=== PATIENT | male | born 1950 | race Two or more races ===

== ENCOUNTER 2024-06-25 11:33 | Emergency (ER) | payer OTHER ==
[2024-06-25 11:50] VITALS: RESP 18; TEMP 98; BMI 28.6
[2024-06-25 12:47] LABS: BASO % 0.5 % (0-2.0); EOS % 1.5 % (0-4.5); HEMATOCRIT 31.5 % (35.4-49); HEMOGLOBIN 10.1 GM/dL (11.7-16.9); LYMPH % 23.6 % (8-40); MCH 25.7 pg (25.7-33.7); MEAN CELL VOLUME 80.2 fl (80-96); MEAN PLT VOLUME 7.5 fl (7.5-11.1); MONO % 14.9 % (3.8-10.2); NEUT % 59.5 % (42.8-82.8); PLATELET COUNT 264 10^3/uL (134-434); RBC 3.93 M/mm3 (4.00-5.60); RDW 16.4 % (11.9-15.9); WHITE BLOOD COUNT 4.9 K/mm3 (4.0-10.0)
[2024-06-25 12:55] LABS: INR 1.13 (0.83-1.09)
[2024-06-25 12:58] LABS: ACTIVATED PTT 36.8 SECONDS (25.2-36.5)
[2024-06-25 13:12] LABS: POTASSIUM 4.8 mmol/L (3.5-5.1)
[2024-06-25 13:13] LABS: ALBUMIN 3.4 g/dl (3.4-5.0)
[2024-06-25 13:14] LABS: BLOOD UREA NITROGEN 16.2 mg/dL (7-18)
[2024-06-25 13:18] LABS: CALCIUM 8.5 mg/dL (8.5-10.1)
[2024-06-25 13:19] LABS: MAGNESIUM 1.9 mg/dL (1.8-2.4)
[2024-06-25 13:21] LABS: BILIRUBIN,TOTAL 0.4 mg/dL (0.2-1); TOT PROT 6.8 g/dl (6.4-8.2)
[2024-06-25 14:45] VITALS: BP 112/61; PULSE 86
[2024-06-25 16:19] LABS: HIV INTERPRETATION NEGATIVE (NEGATIVE)
== END 2024-06-25 16:00 | disposition home or self-care (01) ==
LOC: JER 11:33
DX: R55 Syncope and collapse (principal); R42 Dizziness and giddiness; R19.7 Diarrhea, unspecified
CPT/HCPCS: 36415; 71045-TC-FY; 80053; 83735; 84484; 85025; 85610; 85730; 86803; 87389; 93005; 93010; 99285-25